=== PATIENT | male | born 1990 | race African-American/Black ===

== ENCOUNTER 2016-08-14 09:57 | Emergency (ER) | payer SELFPAY ==
[~2016-08-14] VITALS: Ht 172.7 cm; Wt 75.0 kg
[~2016-08-14 09:57] MED LIST: DICY1TAB26 PO; ZOFR4TAB3 PO
[2016-08-14 09:58] VITALS: BP 142/81; PULSE 82; RESP 16; TEMP 98; O2SAT 98
--- NOTE | 2016-08-14 12:08 | PD ---
HPI Chief Complaint: Pain: Acute or Chronic Time Seen by Provider: 11:08 Travel History International Travel<30 days: No Contact w/Intl Traveler<30days: No Traveled to known affect area: No History of Present Illness HPI This is a 26-year-old male who presents to the emergency department with chest discomfort. Patient reports that since last evening he's had discomfort on the left side of his chest that goes into his shoulder and into his back. He has a lot of pain when he moves his left arm. He denies any palpitations, diaphoresis or nausea. He is otherwise healthy. He denies any drug use. He denies hypertension, hyperlipidemia, diabetes, smoking or family history of heart attack. He does have a history of cerebral palsy which primarily affects his legs. 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 He also has a prior clavicular fracture on the left side. PFSH Past Medical History Heart Rhythm Problems: Yes Cardiovascular Problems: Yes (HX CHEST PAIN) Cerebral Palsy: Yes Immunizations Current: Yes Influenza Vaccination: No Social History Alcohol Use: No Tobacco Use: No Substance Use: No Allergies-Medications (Allergen,Severity, Reaction): Coded Allergies: No Known Allergies (Unverified , 08/14/16) Reported Meds & Prescriptions Reported Meds & Active Scripts Active No Active Prescriptions or Reported Medications Review of Systems Except as stated in HPI: all other systems reviewed are Neg Physical Exam Narrative GENERAL:Well appearing, no acute distress SKIN: Focused skin assessment warm and dry. HEAD: Atraumatic. Normocephalic. EYES: Pupils equal and round. No injection or drainage. ENT: Moist mucous membranes NECK: Trachea midline. CARDIOVASCULAR: Regular rate and rhythm. No murmur appreciated. 2+ left radial pulse with normal capillary refill. RESPIRATORY: Clear to auscultation. Breath sounds equal bilaterally. GASTROINTESTINAL: Abdomen soft, non-tender, nondistended. MUSCULOSKELETAL:Gross deformity, old left mid clavicle, tender to palpation along the left bicep, left upper paraspinal muscles and left anterior chest wall with pain with abduction and internal and external rotation of the left shoulder NEUROLOGICAL: Awake and alert. No obvious cranial nerve deficits. Moving all extremities. PSYCHIATRIC: Appropriate mood and affect; insight and judgment normal. Data Data Last Documented VS Vital Signs Date Time Temp Pulse Resp B/P Pulse Ox O2 Delivery O2 Flow Rate FiO2 08/14/16 09:58 98.0 82 16 142/81 98 Orders Electrocardiogram (08/14/16 ) Chest, Pa & Lat (08/14/16 ) Orphenadrine Inj (Norflex Inj) (08/14/16 12:15) Ketorolac Inj (Toradol Inj) (08/14/16 12:15) MDM Medical Decision Making Medical Screen Exam Complete: Yes Emergency Medical Condition: Yes Interpretation(s) EKG: ST elevation prominently in the inferior leads with J-point elevation, likely benign early repolarization appears similar to EKG from 2012 Chest x-ray: No acute process Differential Diagnosis Musculoskeletal strain, acute coronary syndrome, costochondritis, pneumothorax, pneumonia Narrative Course This is a 26-year-old male who presents the emergency department with left- sided chest, back and shoulder pain, worse with movement. I can elicit his pain on exam by ranging his left shoulder and he is focally tender along his left bicep, anterior chest wall in his upper back on the left. EKG demonstrates benign early repolarization. Chest x-rays reassuring. I think patient can safely be discharged on anti-inflammatories. He was given an injection of muscle relaxer and Toradol here in the emergency department. Diagnosis Primary Impression: Musculoskeletal pain Patient Instructions: General Instructions Additional Instructions: If you develop severe chest pain, shortness of breath, sweating, lightheadedness , dizziness or difficulty breathing return to the emergency department immediately. Followup with your primary care physician in 2-3 days if your symptoms are not resolved. Med/Other Pt SpecificInfo: Prescription(s) given Scripts Naproxen 500 Mg [id number] Mg PO BID PRN (PAIN SCALE 4 TO 10) #20 TAB Prov:Bere Reynaga MD 08/14/16 Disposition: 01 DISCHARGE HOME Condition: Stable Bere Reynaga MD Aug 14, 2016 12:08
[2016-08-14] MEDS ORDERED: ORPHENADRINE INJ 60 MG/2 ML AMP IM ONE (12:15)
[2016-08-14] MEDS ORDERED: KETOROLAC TROMETHAMINE 60 MG/2 ML (IM) VIAL IM ONE (12:15)
--- NOTE | 2016-08-14 12:29 | RADRPT ---
EXAM DATE/TIME: 08/14/2016 10:52 [facility] COMPARISON: No previous studies available for comparison. INDICATIONS : Chest pain and shortness of breath since lastnight. MEDICAL HISTORY : None. SURGICAL HISTORY : None. ENCOUNTER: Initial ACUITY: 1 day PAIN SCORE: 7/10 LOCATION: Left chest FINDINGS: PA and lateral views of the chest demonstrate the lungs to be symmetrically aerated without evidence of mass, infiltrate or effusion. The cardiomediastinal contours are unremarkable. Osseous structure s are intact. CONCLUSION: 1. No acute cardiopulmonary disease. Brooks Arrington MD on August 14, 2016 at 12:26 Board Certified Radiologist. This report was verified electronically.
[2016-08-14] MEDS ORDERED: NAPR500T PO (12:57)
--- NOTE | 2016-08-15 21:56 | EKG ---
Date Performed: 08/14/2016 Time Performed: 10:15:21 PTAGE: 26 years EKG: Sinus rhythm EARLY REPOLARIZATION Since previous tracing, no significant change noted BORDERLINE ECG PREVIOUS TRACING : 04/17/2012 17.12 DOCTOR: Gerardo Palumbo Interpretating Date/Time 08/15/2016 21:54:30
== END 2016-08-14 13:15 | disposition home or self-care (01) ==
LOC: NEPD 09:57
DX: M79.1 Myalgia (principal)
CPT/HCPCS: 71020; 93005; 96372; 99284; J1885; J2360

== ENCOUNTER 2017-07-09 10:06 | Emergency (ER) | payer MEDICAID ==
[~2017-07-09] VITALS: Ht 172.7 cm; Wt 59.0 kg
[~2017-07-09 10:06] MED LIST changes: -DICY1TAB26 PO; +NAPR500T2 PO; -ZOFR4TAB3 PO
[2017-07-09 10:30] VITALS: BP 119/66; PULSE 102; RESP 18; TEMP 99; O2SAT 97
--- NOTE | 2017-07-09 10:48 | PD ---
HPI Chief Complaint: Cold / Flu Symptoms Time Seen by Provider: 10:43 Travel History International Travel<30 days: No Contact w/Intl Traveler<30days: No Traveled to known affect area: No History of Present Illness HPI 26-year-old male presents for evaluation. For 1 week he has had cough, congestion, sore throat, myalgias and chills. The cough is dry. No aggravating or relieving factors. Denies any abdominal pain, nausea or vomiting , rash or recent travel. He reports that his son has similar symptoms. No other complaints. PFSH Past Medical History Heart Rhythm Problems: Yes Cardiovascular Problems: Yes Cerebral Palsy: Yes Immunizations Current: Yes Social History Alcohol Use: No Tobacco Use: No Substance Use: No Allergies-Medications (Allergen,Severity, Reaction): Coded Allergies: No Known Allergies (Unverified Adverse Reaction, Unknown, 07/09/17) Reported Meds & Prescriptions Reported Meds & Active Scripts Active Flonase Nasal [place] (Fluticasone Nasal [place]) 50 Mcg/Act [place] 100 Mcg EACH NARE BID 7 Days Tessalon Perles (Benzonatate) 100 Mg Cap 100 Mg PO TID PRN Review of Systems Except as stated in HPI: all other systems reviewed are Neg Physical Exam Narrative GENERAL: Well-developed well-nourished male in no acute distress SKIN: Warm and dry. HEAD: Atraumatic. Normocephalic. EYES: Pupils equal and round. No scleral icterus. No injection or drainage. ENT: No nasal bleeding or discharge. Mucous membranes pink and moist. Tympanic membrane's appear normal. No oral pharyngeal erythema or exudate. NECK: Trachea midline. No JVD. Neck supple full range of motion no lymphadenopathy CARDIOVASCULAR: Regular rate and rhythm. No murmur appreciated. RESPIRATORY: No accessory muscle use. Clear to auscultation. Breath sounds equal bilaterally. No crackles no wheezing no rhonchi GASTROINTESTINAL: Abdomen soft, non-tender, nondistended. Hepatic and splenic margins not palpable. Data Data Last Documented VS Vital Signs Date Time Temp Pulse Resp B/P (MAP) Pulse Ox O2 Delivery O2 Flow Rate FiO2 07/09/17 10:30 99.0 102 18 119/66 (83) 97 Orders Orders Influenzae A/B Antigen (07/09/17 10:46) Ed Discharge Order (07/09/17 11:22) MDM Medical Decision Making Medical Screen Exam Complete: Yes Emergency Medical Condition: Yes Medical Record Reviewed: Yes Differential Diagnosis Bronchitis, pneumonia, influenza, sinusitis Narrative Course 26-year-old male with 1 week of upper respiratory symptoms. He appears well. Lungs are clear to auscultation. Influenza antigen was performed and is negative. he will be discharged with Tessalon and Flonase for symptom treatment. Diagnosis Primary Impression: Upper respiratory infection Additional Instructions: Medication as needed. Stay well hydrated and well-nourished. Wash hands frequently. Return for any emergent medical conditions. Med/Other Pt SpecificInfo: Prescription(s) given Scripts Fluticasone Nasal [place] (Flonase Nasal [place]) 50 Mcg/Act [place] 100 MCG EACH NARE BID for Allergies for 7 Days, #1 BOTTLE 0 Refills Prov: Maikel Bills MD 07/09/17 Benzonatate (Tessalon Perles) 100 Mg Cap 100 MG PO TID Y for COUGH, #30 CAP 0 Refills Prov: Maikel Bills MD 07/09/17 Disposition: 01 DISCHARGE HOME Condition: Stable Denton Perry Jul 09, 2017 10:48
[2017-07-09] MEDS ORDERED: FLUT1SPR5 EACH NARE (11:21)
[2017-07-09] MEDS ORDERED: BENZ100 PO (11:21)
== END 2017-07-09 11:28 | disposition home or self-care (01) ==
LOC: NEPK 10:06
DX: J06.9 Acute upper respiratory infection, unspecified (principal)
CPT/HCPCS: 87804; 99283

== ENCOUNTER 2017-08-09 09:56 | Emergency (ER) | payer MEDICAID ==
[~2017-08-09] VITALS: Ht 172.7 cm; Wt 66.0 kg
[~2017-08-09 09:56] MED LIST changes: +BENZ100 PO; +FLUT1SPR5 EACH NARE; -NAPR500T2 PO
[2017-08-09 10:20] VITALS: BP 128/68; PULSE 70; RESP 16; TEMP 97.9; O2SAT 98
--- NOTE | 2017-08-09 11:13 | PD ---
HPI Chief Complaint: Injury Time Seen by Provider: 10:41 Travel History International Travel<30 days: No Contact w/Intl Traveler<30days: No Traveled to known affect area: No History of Present Illness HPI 27-year-old male presents the ED for evaluation of less than 24 hour history of right-sided ankle pain. Rated 8/10, worsened by touch and certain motions. No alleviating factors reported. Patient can identify no acute injury. He does endorse history of playing multiple sports in his high school years. Denies clicking, locking, popping or giving way. Denies any recent overuse. No treatment attempted at home. PFSH Past Medical History Heart Rhythm Problems: Yes Cardiovascular Problems: Yes Cerebral Palsy: Yes Immunizations Current: Yes Social History Alcohol Use: No Tobacco Use: No Substance Use: No Allergies-Medications (Allergen,Severity, Reaction): Coded Allergies: No Known Allergies (Unverified Adverse Reaction, Unknown, 08/09/17) Reported Meds & Prescriptions Reported Meds & Active Scripts Active No Active Prescriptions or Reported Medications Review of Systems Except as stated in HPI: all other systems reviewed are Neg Physical Exam Narrative GENERAL: Well-nourished, well-developed thin -[place] male in no acute distress. SKIN: Focused skin assessment warm/dry. HEAD: Normocephalic. EYES: No scleral icterus. No injection or drainage. NECK: Supple, trachea midline. No JVD or lymphadenopathy. CARDIOVASCULAR: Regular rate and rhythm without murmurs, gallops, or rubs. RESPIRATORY: Breath sounds equal bilaterally. No accessory muscle use. GASTROINTESTINAL: Abdomen soft, non-tender, nondistended. MUSCULOSKELETAL: No cyanosis, or edema. FOCUSED RIGHT LOWER EXTREMITY EXAM: 2+ DP pulse. No edema noted. Tender to palpation of the distal aspect of the lateral malleolus. Squeeze test negative. Homans sign negative. No tenderness to palpation of the navicular, base of the fifth or medial malleolus. Patient is able to flex and extend the ankle. He is able to wiggle toes. Sensation intact and cap refill less than 2 seconds on each digit distally. BACK: Nontender without obvious deformity. No CVA tenderness. Data Data Last Documented VS Vital Signs Date Time Temp Pulse Resp B/P (MAP) Pulse Ox O2 Delivery O2 Flow Rate FiO2 08/09/17 10:20 97.9 70 16 128/68 (88) 98 Orders Orders Ankle, Complete ([id number]) (08/09/17 10:47) Ice/Cold Pack (08/09/17 10:48) Viktor Bandage (08/09/17 11:13) Ed Discharge Order (08/09/17 11:13) MDM Medical Decision Making Medical Screen Exam Complete: Yes Emergency Medical Condition: Yes Differential Diagnosis Osteoarthritis versus muscular skeletal pain versus ankle sprain versus other Narrative Course 27-year-old male presents to the ED for evaluation of right ankle pain. Gradual onset during the course of the day yesterday. Can identify no acute injury but endorses playing multiple sports in high school he. Exam reveals tenderness to palpation of the lateral malleolus but is otherwise unremarkable. X-ray reveals no acute bony injury. Patient's provided a short course of anti -inflammatories instructed to use RICE therapy for 5 days. He is instructed to follow-up with the sales enablement specialist with orthopedist if symptoms do not resolve. He indicated understanding of the instructions and is agreeable to care plan. The patient is stable and discharged home. Diagnosis Primary Impression: Right ankle pain Qualified Codes: M25.571 - Pain in right ankle and joints of right foot; G89.29 - Other chronic pain Referrals: Orthopedist Heel Sorter Additional Instructions: Rest, ice, compress and elevate the extremity. Apply ice no longer than 10-15 minutes per hour a few times a day. 800 mg ibuprofen 3 times a day to reduce pain and inflammation. Return to normal, gentle activity as tolerated. No running, jumping activities for the next few weeks. Follow up with orthopedist or the sales enablement specialist if symptoms persist. Return to the ED for any urgent or emergent medical condition. Med/Other Pt SpecificInfo: Prescription(s) given Scripts No Active Prescriptions or Reported Meds Disposition: 01 DISCHARGE HOME Condition: Stable Annika Stock August 09, 2017 11:13
[2017-08-09] MEDS ORDERED: IBUP-232 PO (11:14)
--- NOTE | 2017-08-09 11:26 | RADRPT ---
EXAM DATE: 08/09/2017 11:00 AM EDT AGE/SEX: 27 years / Male INDICATIONS: RT ankle pain. CLINICAL DATA: This is the patient's initial encounter. Patient reports that signs and symptoms have been present for 2 days and indicates a pain score of 7/10. MEDICAL/SURGICAL HISTORY: . Cerebral palsy. None. COMPARISON: No prior [facility] exams available for comparison. FINDINGS: Bony structures are intact and in normal alignment. Joints are intact without dislocation or signifi cant arthropathy. Osseous density is normal. Soft tissues are unremarkable. No radiopaque foreign bodies seen. Pes planus is present. CONCLUSION: 1. No evidence of fracture or underlying bony abnormality. 2. Pes planus. Electronically signed by: Zhang De La Torre MD 08/09/2017 11:24 AM EDT
== END 2017-08-09 11:24 | disposition home or self-care (01) ==
LOC: NEPK 09:56
DX: M25.571 Pain in right ankle and joints of right foot (principal); G89.29 Other chronic pain
CPT/HCPCS: 73610; 99282